=== PATIENT | female | born 1970 | race Caucasian/White ===

== ENCOUNTER → 2017-12-26 | Outpatient (CLI) | payer OTHER | END | disposition home or self-care (01) | LOC: MA 09:51 | PROC: BH02ZZZ Plain Radiography of Bilateral Breasts (ICD-10-PCS; principal; 2017-12-26) | DX: Z12.39 Encounter for other screening for malignant neoplasm of breast (principal) | CPT/HCPCS: 77067 ==

== ENCOUNTER → 2018-01-13 | Outpatient (CLI) | payer OTHER | END | disposition home or self-care (01) | LOC: MA 01-12 13:30 | PROC: BH00ZZZ Plain Radiography of Right Breast (ICD-10-PCS; principal; 2018-01-13) | DX: R92.2 Inconclusive mammogram (principal) | CPT/HCPCS: 77065 ==